=== PATIENT | female | born 1985 | race African-American/Black ===

== ENCOUNTER 2023-07-08 17:07 | Emergency (ER) | payer OTHER, SELFPAY ==
--- NOTE | ~2023-07-08 | US_ITS ---
EXAMINATION: US pelvic complete w TV DATE: 07/08/2023 23:17 INDICATION: History of cyst. Rule out ovarian torsion. Comparison:No prior studies for comparison. TECHNIQUE: Multiple transabdominal and endovaginal sonographic images of the pelvis performed. FINDINGS: The uterus measures 10 x 5.4 x 5.4 cm. There are echogenic foci in the endometrium which ma y correspond to known -control implants. The endometrial complex measures 8. The right ovary measures 2.4 x 2.2 x 2.7 cm and the left ovary measures 3 x 2.1 x 2.8 cm. There are small follicles in each ovary. Normal doppler signal in both ovaries. There is no free fluid in the pelvis. There are no abnormal masses seen on either side. IMPRESSION: 1. Enlarged uterus. Echogenic foci within the endometrium which may represent known control imp lants. 2: No evidence for ovarian torsion. Reviewed, dictated and finalized at location A. IMPRESSION: 1. Enlarged uterus. Echogenic foci within the endometrium which may represent k nown control implants. 2: No evidence for ovarian torsion.
[2023-07-08 17:23] VITALS: BP 142/92; PULSE 87; RESP 20; TEMP 36.9; O2SAT 100
[2023-07-08 17:39] LABS: Basophils Percent Auto 0.6 % (0.2-1.2); Eosinophils Absolute Auto 0.1 K/mm3 (0-0.3); Eosinophils Percent Auto 2.5 % (0-4.4); Hemoglobin 11.6 g/dL (12.0-15.0); Immature Granulocyte Absolute 0.01 K/mm3 (0.00-0.031); Immature Granulocyte Percent A 0.2 % (0-0.5); Lymphocytes Percent Auto 32.7 % (18.3-44.2); Mean Corpuscular HGB Conc 31.4 g/dl (32-36); Mean Corpuscular Hemoglobin 23.9 pg (26-34); Mean Corpuscular Volume 76.3 fl (80-100); Mean Platelet Volume 9.7 fl (7.4-10.4); Monocytes Absolute Auto 0.4 K/mm3 (0.1-0.6); Neutrophils Absolute Auto 2.7 K/mm3 (1.3-6.7); Platelet Count Result 332 k/mm3 (150-375); Red Blood Count 4.85 M/mm3 (4.2-5.4); Red Cell Distribution Width 14.5 % (11.5-14.5); White Blood Count 4.9 K/mm3 (4.5-10.0)
[2023-07-08 17:49] LABS: Alanine Aminotransferase 20 U/L (6-35); Albumin Level 4.5 g/dL (3.5-5.1); Alkaline Phosphatase 83 U/L (38-126); Anion Gap 9 mmol/L (8-16); Aspartate Amino Transferase 25 U/L (14-36); Bilirubin,Total 0.5 mg/dL (0.2-1.3); Blood Urea Nitrogen 15 mg/dL (7-17); Calcium 9.2 mg/dL (8.4-10.2); Carbon Dioxide 29 mmol/L (22-30); Chloride 102 mmol/L (98-107); Estimated CRCL calculation 76 ml/min; Estimated Glomerular Filt Rate > 60; Glucose 110 mg/dL (65-110); Lipase 58 U/L (23-300); Potassium 3.7 mmol/L (3.4-5.0); Sodium 140 mmol/L (137-145)
[2023-07-08 22:00] VITALS: BP 142/88; PULSE 95; RESP 15; TEMP 36.8; O2SAT 100
[2023-07-08 22:08] LABS: Appearance Urine Cloudy (Clear); Bacteria Urine 1+ /hpf; Bilirubin Urine Negative (Negative); Blood Urine Negative (Negative); Color Urine Yellow (Yellow); Glucose Urine UA Negative (Negative); Ketones Urine Negative (Negative); Leukocyte Esterase Ur 1+ LEU/UL (Negative); Nitrate Urine Negative (Negative); Non Pathogenic Casts 0-2; Protein Urine Negative (Negative); RBC Urine 0-2 /hpf (0-2); Specific Grav Ur 1.014 (1.001-1.035); Squamous Epithelial Cell Urine Few /hpf (Few); Urobilinogen Urine 0.2 mg/dL (<2.0); pH Urine 7.5 (5.0-9.0)
[2023-07-08 22:11] LABS: Add Urine Microscopic? YES
[2023-07-08 22:18] VITALS: O2SAT 98
[2023-07-08 23:40] VITALS: O2SAT 98
[2023-07-08 23:45] VITALS: O2SAT 100
[2023-07-08 23:46] VITALS: BP 126/82; O2SAT 99
[2023-07-08] MEDS: ACETAMINOPHEN 500 MG TABLET 1000 MG PO (23:53)
[2023-07-09] VITALS (10 sets, daily range): BP systolic 109–134; BP diastolic 70–88; PULSE 74; RESP 15–18; O2SAT 98–100
--- NOTE | 2023-07-09 00:05 | ED.GENADULT ---
HPI - General Adult General Chief complaint: Abdominal Pain Stated complaint: abd pain Time Seen by Provider: 07/08/23 21:54 History of Present Illness HPI narrative: Patient 37-year-old female who presents the emergency department with chief complaint of abdominal pain. Patient reports that she was recently seen at [facility] and was evaluated with a CT scan and had a pelvic ultrasound that showed that she had an ovarian cyst. The patient reports she is continue to have pain in the low pelvic area reports no nausea no vomiting reports that she has an appointment coming up with her primary care provider and has an appointment coming up with [facility] in July. Related Data Allergies Allergy/AdvReac Type Severity Reaction Status Date / Time hydrochlorothiazide Allergy Other Verified 07/08/23 22:07 Review of Systems Review of Systems: A 10 system review of systems was completed on the patient and is negative except for what is stated in the HPI. Nursing and ancillary documentation was reviewed. Exam Narrative: GENERAL: Well-appearing, well-nourished, and in no acute distress. HEAD: Normocephalic, atraumatic. EYES: PERRLA and EOMI. ENT: Nares clear, no rhinorrhea or epistaxis. Mucous membranes moist. NECK: Supple. CHEST: Clear to auscultation. No respiratory distress. HEART: Regular rate and rhythm. No murmur heard. Normal peripheral pulses. ABDOMEN: Soft, mild tenderness to palpation in the pelvis, no guarding no rebound, nondistended, normal active bowel sounds. EXTREMITIES: Normal range of motion. No edema. SKIN: Warm, dry, no rash. NEURO: No focal deficits. Alert and oriented x3. PSYCH: Normal mood and affect. Course Vital Signs Vital signs: Vital Signs Temperature 36.9 C 07/08/23 17:23 Pulse Rate 87 07/08/23 17:23 Respiratory Rate 20 07/08/23 17:23 Blood Pressure 142/92 H 07/08/23 17:23 Pulse Oximetry 100 07/08/23 17:23 Oxygen Delivery Room Air 07/08/23 17:23 Temperature 36.8 C 07/08/23 22:00 Pulse Rate 95 07/08/23 22:00 Respiratory Rate 15 07/09/23 01:01 Blood Pressure 109/70 07/09/23 01:01 Pulse Oximetry 100 07/09/23 01:00 Oxygen Delivery Room Air 07/08/23 17:23 Medical Decision Making MDM Narrative Medical decision making narrative: Differential diagnosis includes ovarian cyst ovarian torsion, UTI Laboratory studies were obtained showed normal CBC electrolytes are within normal limits urinalysis showed 6-10 white blood cells 1+ leukocyte esterase 1+ bacteria. Pelvic ultrasound showed no evidence of torsion Patient was started on Keflex will be referred to follow-up with her primary care provider Vital Signs Vital Signs: Vital Signs Temperature 36.9 C 07/08/23 17:23 Pulse Rate 87 07/08/23 17:23 Respiratory Rate 20 07/08/23 17:23 Blood Pressure 142/92 H 07/08/23 17:23 Pulse Oximetry 100 07/08/23 17:23 Oxygen Delivery Room Air 07/08/23 17:23 Temperature 36.8 C 07/08/23 22:00 Pulse Rate 95 07/08/23 22:00 Respiratory Rate 15 07/09/23 01:01 Blood Pressure 109/70 07/09/23 01:01 Pulse Oximetry 100 07/09/23 01:00 Oxygen Delivery Room Air 07/08/23 17:23 Lab Data 07/08/23 17:34 07/08/23 17:34 Labs: Lab Results 07/08/23 07/08/23 Range/Units 17:34 21:54 WBC 4.9 (4.5-10.0) K/mm3 RBC 4.85 (4.2-5.4) M/mm3 Hgb 11.6 L (12.0-15.0) g/dL Hct 37.0 (37.0-47.0) % MCV 76.3 L (80-100) fl MCH 23.9 L (26-34) pg MCHC 31.4 L (32-36) g/dl RDW 14.5 (11.5-14.5) % Plt Count 332 (150-375) k/mm3 MPV 9.7 (7.4-10.4) fl Immature Gran % (Auto) 0.2 (0-0.5) % Neut % (Auto) 56.0 (45.5-73.1) % Lymph % (Auto) 32.7 (18.3-44.2) % [place] % (Auto) 8.0 (2.6-8.5) % Eos % (Auto) 2.5 (0-4.4) % Baso % (Auto) 0.6 (0.2-1.2) % Lymph # (Auto) 1.60 (0.9-3.2) K/mm3 [place] # (Auto) 0.4 (0.1-0.6) K/mm3 Eos # (Auto) 0.1 (0-0.3) K/m
[2023-07-09] MEDS: CEPHALEXIN 500 MG CAPSULE PO (01:45)
== END 2023-07-09 02:35 | disposition home or self-care (01) ==
PROVIDERS: General Practice; Emergency Provider Emergency Medicine; PCP Family Medicine
DX: N39.0 Urinary tract infection, site not specified (principal); R10.2 Pelvic and perineal pain; N85.2 Hypertrophy of uterus
CPT/HCPCS: 36415; 76830; 76856; 80053; 81001; 81025; 83690; 85025; 87086; 87088; 99284; A9270